=== PATIENT | female | born 1965 | race Caucasian/White ===

== ENCOUNTER → 2017-03-02 | Outpatient (CLI) | payer MEDICARE ==
[~2017-03-02] MED LIST: CATAPRES 0.1MG0.1 MG PO; ELAVIL 25 MG TA25 MG PO; FLEXERIL 10 MG10 MG PO; LEXAPRO20 MG PO; LISINOPRIL20 MG PO; NEURONTIN 400400 MG PO
== END ==
LOC: KOH-I 09:20
DX: M54.2 Cervicalgia (principal); M54.9 Dorsalgia, unspecified; R05 Cough; M51.35 Other intervertebral disc degeneration, thoracolumbar region; M51.36 Other intervertebral disc degeneration, lumbar region; M41.9 Scoliosis, unspecified
CPT/HCPCS: 71020; 72050; 72070; 72110

== ENCOUNTER 2017-03-19 15:26 | Observation (INO) | payer MEDICARE ==
[~2017-03-19] VITALS: Ht 160 cm; Wt 101.7 kg
[2017-03-19 16:19] LABS: HEMOGLOBIN 15.2 gm/dl (12.3-15.3); RED BLOOD COUNT 4.76 M/UL (4.00-5.10); WHITE BLOOD COUNT 10.9 K/UL (4.5-11.0)
[2017-03-20] MEDS ORDERED: LEXAPRO20 MG PO (03:34)
[2017-03-20] MEDS ORDERED: CATAPRES 0.1MG0.1 MG PO (03:34)
[2017-03-20] MEDS ORDERED: LISINOPRIL20 MG PO (03:35)
[2017-03-20] MEDS ORDERED: NEURONTIN 400400 MG PO (03:35)
[2017-03-20] MEDS ORDERED: FLEXERIL 10 MG10 MG PO (03:38)
[2017-03-20] MEDS ORDERED: ELAVIL 25 MG TA25 MG PO (03:39)
--- NOTE | 2017-03-20 18:02 | NUR ---
resp therapy in room applying the event monitor.
== END 2017-03-20 18:27 | disposition home or self-care (01) ==
LOC: ER1 15:26 → ZEROF 19:16 → M/S 19:16
PROVIDERS: Emergency Medicine; ADMIT Internal Medicine
DX: R55 Syncope and collapse (principal); I10 Essential (primary) hypertension; F32.9 Major depressive disorder, single episode, unspecified; F41.9 Anxiety disorder, unspecified; E66.9 Obesity, unspecified; F17.210 Nicotine dependence, cigarettes, uncomplicated; Z68.39 Body mass index [BMI] 39.0-39.9, adult; Z79.899 Other long term (current) drug therapy; Z82.5 Family history of asthma and other chronic lower respiratory diseases; Z82.49 Family history of ischemic heart disease and other diseases of the circulatory system; Z90.49 Acquired absence of other specified parts of digestive tract
CPT/HCPCS: ECHO; 36415; 70450; 70496; 70498; 71020; 80053; 80307; 82550; 82553; 83874; 84439; 84443; 84484; 85025; 93005; 93270; 93306; 95819; 96360; 99285; G0378; J7030; J7050; Q9963

== ENCOUNTER → 2017-04-06 | Outpatient (CLI) | payer MEDICARE | LOC: RT 11:45 | DX: R55 Syncope and collapse (principal); I95.1 Orthostatic hypotension ==

== ENCOUNTER 2022-04-06 12:14 | Emergency (ER) | payer MEDICARE ==
[~2022-04-06 12:14] MED LIST changes: +CLONIDINE HCL0.1 MG PO; +CYCLOBENZAPRINE10 MG PO; +ESCITALOPRAM OX20 MG PO; +GABAPENTIN800 MG PO; +HYDROCODON-ACE1 EAC4 PO; +IBUPROFEN800 MG PO; +NORCO 10-325 T1 EACH PO; +NORCO 5-325 TA1 EACH PO; +PERCOCET 10-321 EACH PO; +PREDNISONE 50 M50 MG PO; +TESSALON PERLE100 MG PO; +ULTRAM50 MG PO; +VENTOLIN HFA 66.7 GM INH; +VIBRAMYCIN100 MG PO; +ZESTRIL20 MG PO
[2022-04-06] MEDS ORDERED: IBU600 MG PO (14:20)
[2022-04-06] MEDS ORDERED: LIDOCAINE PAIN1 EACH TP (14:20)
== END 2022-04-06 15:03 | disposition home or self-care (01) ==
LOC: ER1 12:14
DX: S29.9XXA Unspecified injury of thorax, initial encounter (principal); I10 Essential (primary) hypertension; J44.9 Chronic obstructive pulmonary disease, unspecified; F17.210 Nicotine dependence, cigarettes, uncomplicated; X50.9XXA Other and unspecified overexertion or strenuous movements or postures, initial encounter
CPT/HCPCS: 71101; 96372; 99283; J1885

== ENCOUNTER 2022-05-10 09:50 | Emergency (ER) | payer MEDICARE ==
[~2022-05-10 09:50] MED LIST changes: +IBU600 MG PO; +LIDOCAINE PAIN1 EACH TP
[2022-05-10] MEDS ORDERED: CYCLOBENZAPRINE10 MG PO (11:53)
[2022-05-10] MEDS ORDERED: MEDROL DOSEPAK 24 MG PO (11:53)
== END 2022-05-10 12:18 | disposition home or self-care (01) ==
LOC: ER1 09:50
DX: M54.50 Low back pain, unspecified (principal); I10 Essential (primary) hypertension; F17.200 Nicotine dependence, unspecified, uncomplicated; Z87.311 Personal history of (healed) other pathological fracture; W01.0XXA Fall on same level from slipping, tripping and stumbling without subsequent striking against object, initial encounter
CPT/HCPCS: 72131; 72170; 96372; 99284; J1885

== ENCOUNTER 2022-05-13 14:55 | Emergency (ER) | payer MEDICARE ==
[~2022-05-13 14:55] MED LIST changes: +MEDROL DOSEPAK 24 MG PO
[2022-05-13 16:15] LABS: HEMOGLOBIN 14.2 gm/dl (12.3-15.3); RED BLOOD COUNT 4.71 M/UL (4.00-5.10); WHITE BLOOD COUNT 10.2 K/UL (4.5-11.0)
[2022-05-13 16:35] LABS: BUN/CREATININE RATIO 19 (0-10)
[2022-05-13] MEDS ORDERED: PERCOCET 5/325 T1 EA PO (20:35)
== END 2022-05-13 20:48 | disposition home or self-care (01) ==
LOC: ER1 14:55
PROVIDERS: Emergency Medicine
DX: M54.50 Low back pain, unspecified (principal); I10 Essential (primary) hypertension; J44.9 Chronic obstructive pulmonary disease, unspecified; F17.200 Nicotine dependence, unspecified, uncomplicated
CPT/HCPCS: 72158; 80048; 81001; 85025; 86140; 93005; 96374; 99284; J1170

== ENCOUNTER → 2022-06-09 | Outpatient (CLI) | payer MEDICARE ==
[~2022-06-09] MED LIST changes: +PERCOCET 5/325 T1 EA PO
== END ==
LOC: MAMO 12:43
DX: Z12.31 Encounter for screening mammogram for malignant neoplasm of breast (principal); Z78.0 Asymptomatic menopausal state
CPT/HCPCS: 77063; 77067

== ENCOUNTER → 2022-08-07 | Outpatient (CLI) | payer BC ==
[~2022-08-07] MED LIST changes: +AMITRIPTYLINE100 MG PO; +PROAIR DIGIHAL90 MCG INH
[2022-08-07 16:14] LABS: BUN/CREATININE RATIO 13 (0-10)
== END ==
LOC: CT 14:51
PROVIDERS: Nurse Practitioner Family
DX: F17.210 Nicotine dependence, cigarettes, uncomplicated (principal); R60.9 Edema, unspecified; I10 Essential (primary) hypertension; R91.1 Solitary pulmonary nodule
CPT/HCPCS: 36415; 71270; 80048; Q9967